=== PATIENT | male | born 1960 | race Caucasian/White ===

== ENCOUNTER 2017-10-24 05:24 | Inpatient (IN) | payer BC, OTHER ==
[2017-10-24] VITALS (20 sets, daily range): BP systolic 128–155; BP diastolic 82–97; PULSE 57–96; TEMP 36.4–36.8; O2SAT 94–97; Ht 175.3 cm; Wt 86.8 kg
[~2017-10-24] VITALS: Ht 175.3 cm; Wt 86.8 kg
[~2017-10-24 05:24] MED LIST: ACET500C35 PO; ASPI81TA28 PO; ATEN50TA8 PO; ATOR-22 PO; ATRO1SOL13 OPL; BRIN3SUS OPL; CIPR-255 PO; CRS/10 PO; GLC/500 PO; PRED1SUS3 OPL; TIMO0.5S2 OPL; [UNRECOGNIZED DRUG - OTHER] OPL
[2017-10-24] MEDS ORDERED: NITROGLYCERIN 0.4 MG SL PER TAB CHARGE ONE (05:38)
[2017-10-24] MEDS ORDERED: ASPIRIN 324 MG CHEW ONE (05:45)
[2017-10-24] MEDS: NITROGLYCERIN 0.4 MG SL PER TAB CHARGE SL PRN ×2 (05:48→05:55)
--- NOTE | 2017-10-24 05:52 | EMERGENCY ROOM VISIT NOTE ---
History Report prepared by Maggie: Brittany Box Under the Supervision of: Dr. Donna Rawls D.O. First contact with patient: 05:30 Chief Complaint: CHEST PAIN Stated Complaint: PAIN IN NECK AND CHEST History of Present Illness The patient is a 57 year old male who presents to the Emergency Room with complaints of an episode of chest pain beginning just prior to arrival. Presently, the patient rates his chest pain as a 6/10. The patient states he woke up this morning with chest pain that radiates to the right side of his neck. He report he had the same pain on Monday, four days ago. When he had the episode of chest pain on Monday, he states he was able to "sleep it off". The patient notes he had a stress test several years ago. The patient has a history of his heart skipping a beat. He notes his father had a bypass in his late 50s. The patient states he had a chest cold for the past ten days. He notes difficulty taking a full breath. The patient does landscaping. The patient takes baby Aspirin once a day in the morning. The patient has a history of high cholesterol and hypertension. Source of History: patient Onset: just prior to arrival Position: chest Symptom Intensity: 6/10 Quality: other (radiates to right side of his neck ) Timing: other (episode) Associated Symptoms: + SOB Review of Systems See HPI for pertinent positives & negatives. A total of 10 systems reviewed and were otherwise negative. Past Medical & Surgical Medical Problems: (1) Food poisoning (2) High cholesterol (3) Hypertension (4) Prediabetes Surgical Problems: (1) Hx of cholecystectomy Family History Cardiac disorder in father Social History Smoking Status: Never Smoker Alcohol Use: none Drug Use: none Marital Status: Occupation Status: employed Current/Historical Medications Scheduled Aspirin (Aspirin 81), 81 MG PO DAILY Atorvastatin (Lipitor), 20 MG PO HS Lisinopril (Prinivil), 10 MG PO DAILY Metformin Hcl (Glucophage), 1,000 MG PO BID Metoprolol Succ (Toprol Xl) (Toprol-Xl), 50 MG PO DAILY Allergies Coded Allergies: No Known Allergies (Verified , 10/24/17) Physical Exam Vital Signs Date Time Temp Pulse Resp B/P (MAP) Pulse Ox O2 Delivery O2 Flow Rate FiO2 10/24/17 06:47 75 19 95 10/24/17 06:45 130/89 10/24/17 06:37 70 18 95 10/24/17 06:30 126/86 10/24/17 06:27 72 16 95 Nasal Cannula 2.0 10/24/17 06:20 Nasal Cannula 2.0 10/24/17 06:17 Nasal Cannula 1.0 10/24/17 06:17 63 20 93 10/24/17 06:15 145/96 10/24/17 06:07 67 26 92 10/24/17 06:00 146/98 10/24/17 06:00 95 10/24/17 05:57 74 15 94 10/24/17 05:54 150/96 10/24/17 05:47 86 17 97 10/24/17 05:42 178/125 96 Room Air 10/24/17 05:39 97 20 10/24/17 05:38 92 10/24/17 05:37 203/129 10/24/17 05:27 36.6 78 18 193/121 100 Room Air Physical Exam HEENT: Head - normocephalic and atraumatic Pupils are equal, round, and reactive to light. Extraocular eye muscles are intact, and sclera are anicteric. Nose - moist nasal mucosa without discharge. Mouth - moist buccal mucosa. Oropharynx is nonerythematous and there is no tonsillar exudate or edema noted. Neck: Supple; no JVD, nuchal rigidity, cervical lymphadenopathy, or auscultated bruits. Heart: Regular rate and rhythm. There is a normal S1 and S2 with no murmurs, clicks, or gallops appreciated. Lungs: Clear to auscultation bilaterally with no wheezes, rales, or rhonchi. Abdomen: Soft, completely nontender, nondistended, with good bowel sounds. There are no palpable pulsatile masses or hepatosplenomegaly. There is no guarding, rigidity, or rebound noted. Extremities: No evidence of cyanosis, clubbing, or edema. There are easily palpable peripheral pulses. Skin: diaphoretic with good turgor and no rashes. Medical Decision & Procedures ER Provider Diagnostic Interpretation: Radiology results as stated below per my review: Portable Chest X-ray: no obvious pulmonary infiltrate, no pneumothorax. Laboratory Results 10/24/17 05:44 Red Blood Count 4.94, Mean Corpuscular Volume 91.7, Mean Corpuscular Hemoglobin 31.4, Mean Corpuscular Hemoglobin Concent 34.2, Mean Platelet Volume 9.5, Neutrophils (%) (Auto) 58.9, Lymphocytes (%) (Auto) 26.8, Monocytes (%) (Auto) 9.1, Eosinophils (%) (Auto) 3.9, Basophils (%) (Auto) 1.0, Neutrophils # (Auto) 6.19, Lymphocytes # (Auto) 2.81, Monocytes # (Auto) 0.96, Eosinophils # (Auto) 0.41, Basophils # (Auto) 0.10 10/24/17 05:44 Test 10/24/17 05:44 White Blood Count 10.50 K/uL (4.8-10.8) Red Blood Count 4.94 M/uL (4.7-6.1) Hemoglobin 15.5 g/dL (14.0-18.0) Hematocrit 45.3 % (42-52) Mean Corpuscular Volume 91.7 fL (80-100) Mean Corpuscular Hemoglobin 31.4 pg (25-34) Mean Corpuscular Hemoglobin Concent 34.2 g/dl (32-36) Platelet Count 347 K/uL (130-400) Mean Platelet Volume 9.5 fL (7.4-10.4) Neutrophils (%) (Auto) 58.9 % Lymphocytes (%) (Auto) 26.8 % Monocytes (%) (Auto) 9.1 % Eosinophils (%) (Auto) 3.9 % Basophils (%) (Auto) 1.0 % Neutrophils # (Auto) 6.19 K/uL (1.4-6.5) Lymphocytes # (Auto) 2.81 K/uL (1.2-3.4) Monocytes # (Auto) 0.96 K/uL (0.11-0.59) Eosinophils # (Auto) 0.41 K/uL (0-0.5) Basophils # (Auto) 0.10 K/uL (0-0.2) RDW Standard Deviation 42.1 fL (36.4-46.3) RDW Coefficient of Variation 12.6 % (11.5-14.5) Immature Granulocyte % (Auto) 0.3 % Immature Granulocyte # (Auto) 0.03 K/uL (0.00-0.02) Prothrombin Time 10.0 SECONDS (9.0-12.0) Prothromb Time International Ratio 1.0 (0.9-1.1) Activated Partial Thromboplast Time 28.2 SECONDS (21.0-31.0) Partial Thromboplastin Ratio 1.1 Anion Gap 10.0 mmol/L (3-11) Est Creatinine Clear Calc Drug Dose 98.0 ml/min Estimated GFR () 108.0 Estimated GFR (Non- 93.2 BUN/Creatinine Ratio 12.2 (10-20) Estimated Average Glucose 128 mg/dl Hemoglobin A1c 6.1 % (4.5-5.6) Calcium Level 9.0 mg/dl (8.5-10.1) Total Bilirubin 0.3 mg/dl (0.2-1) Aspartate Amino Transf (AST/SGOT) 24 U/L (15-37) Alanine Aminotransferase (ALT/SGPT) 34 U/L (12-78) Alkaline Phosphatase 74 U/L (45-117) Total Creatine Kinase 120 U/L (39-308) Creatine Kinase MB 3.2 ng/ml (0.5-3.6) Creatine Kinase MB Ratio 2.7 (0-3.0) Total Protein 7.8 gm/dl (6.4-8.2) Albumin 3.7 gm/dl (3.4-5.0) Globulin 4.1 gm/dl (2.5-4.0) Albumin/Globulin Ratio 0.9 (0.9-2) Triglycerides Level 190 mg/dl (0-150) Cholesterol Level 176 mg/dl (0-200) HDL Cholesterol 52 mg/dl LDL Cholesterol, Calculated 86 mg/dl VLDL Cholesterol, Calculated 38 mg/dl Cholesterol/HDL Ratio 3.4 Medications Administered Medications (Trade) Dose Ordered Sig/Merry Route Start Time Stop Time Status Last Admin Dose Admin Nitroglycerin (Nitrostat Tab) 0.4 mg STK-MED ONCE .ROUTE 10/24/17 05:38 10/24/17 05:39 DC 10/24/17 05:40 0.4 MG Aspirin (Aspirin Chew) 324 mg STK-MED ONCE .ROUTE 10/24/17 05:45 10/24/17 05:46 DC 10/24/17 05:45 324 MG Nitroglycerin (Nitrostat Tab) 0.4 mg Q5M PRN SL 10/24/17 05:50 10/24/17 09:24 DC 10/24/17 05:55 0.4 MG Fentanyl Citrate (Fentanyl Inj) 50 mcg NOW STAT IV 10/24/17 06:07 10/24/17 06:09 DC 10/24/17 06:12 50 MCG Nitroglycerin (Nitroglycerin 2% Oint) 0.5 inch NOW ONCE EXT 10/24/17 06:15 10/24/17 06:16 DC 10/24/17 06:10 0.5 INCH Heparin Sodium (Porcine) (Heparin Iv Bolus) 10,000 unit STK-MED ONCE .ROUTE 10/24/17 06:40 10/24/17 06:41 DC 10/24/17 06:42 5,000 UNIT Heparin Sodium/ Dextrose (Heparin 25,000 Unit/500ml D5W) 25,000 unit STK-MED ONCE .ROUTE 10/24/17 06:40 10/24/17 06:41 DC 10/24/17 06:46 25,000 UNIT Procedure Aspirin PO, Fentanyl IV, Nitroglycerin.ROUTE, Heparin Sodium/Dextrose N/A. ECG Indication: chest pain Rate (beats per minute): 90 Rhythm: normal sinus Findings: T-wave inversion (Lateral), ST elevation (V2 and V3) Comparison ECG Date: 08/09/17 Change: Old EKG was normal, all findings are new. ED Course 0531: Past medical records reviewed. The patient was evaluated in room B2. A complete history and physical exam was performed. A twelve-lead EKG was obtained as described above. An IV lock had been initiated and labs were drawn as above. The patient was observing the proposal writer and pulse oximeter. A portable chest x-ray was obtained. I remained at the patient's bedside. 0538: Ordered Nitroglycerin 0.4 mg SL. 0548: The patient's pain is now a 5/10 after the nitroglycerin. 0545: Ordered Aspirin 324 mg PO 0550:Ordered Nitroglycerin 0.4 mg SL. 0600: I was at the patient's bedside for a Repeat EKG: still having continued T- wave inversion laterally and in lead 1 and aVL. Now he is having multi focal PVCs. 0607: Ordered Fentanyl Inj 50 mcg IV. 0608:1/2 inch nitro paste applied to chest wall 0629: Ordered Heparin bolus and drip. At the patient's bedside to answer questions from the patient's 0630: I updated the patient on his test results and the treatment plan. He is no longer complaining of any chest pain. 0631: Discussed the patient's case with Dr. Johnson. The patient will be evaluated for further management. Medical Decision The patient is a 57 year old male who presents to the ED with chest pain. Differential diagnosis includes STEMI, ACS, NSTEMI, aortic dissection, GERD. Lab results show: white count normal, stable H & H, troponin 1.020, glucose 136 , normal renal function and LFTs, coags are normal. On presentation, the patient is having 6/10 chest discomfort it is significantly hypertensive. There are moderate EKG changes including T wave inversions laterally and in 1 and aVL. Presentation is concerning for an NSTEMI. The patient did have an elevated troponin. He received aspirin, nitroglycerin, and heparin. The patient continued to have discomfort and was given a dose of fentanyl which relieved his pain. I discussed the case with the [facility] Hospitalist and they will evaluate for further care and discussed with cardiology. Medication Reconcilliation Current Medication List: was personally reviewed by me Blood Pressure Screening Patient's blood pressure: Elevated blood pressure Blood pressure disposition: Referred to PCP (evaluated by hopitalist) Consults Time Called: 627 Consulting Physician: Dr. Johnson Returned Call: 06 Discussed the patient's case with Dr. Johnson. The patient will be evaluated for further management. Impression Primary Impression: NSTEMI (non-ST elevated myocardial infarction) Critical Care I have personally spent greater than 60 minutes of critical care time in the direct management of this patient. This includes bedside care, interpretation of diagnostic studies, and testing, discussion with consultants, patient, and family members, and other required patient management activities. This 60 minutes is in excess of all separately billable procedures. Scribe Attestation The scribe's documentation has been prepared under my direction and personally reviewed by me in its entirety. I confirm that the note above accurately reflects all work, treatment, procedures, and medical decision making performed by me. Departure Information Dispostion Being Evaluated By Hospitalist Referrals Mayur Fischer III, M.D. (PCP) Patient Instructions My [facility]
[2017-10-24 05:56] LABS: EOS % 3.9 %; EOS ABS # 0.41 K/uL (0-0.5); HEMATOCRIT 45.3 % (42-52); HEMOGLOBIN 15.5 g/dL (14.0-18.0); IG# 0.03 K/uL (0.00-0.02); LYMPH % 26.8 %; LYMPH ABS # 2.81 K/uL (1.2-3.4); MEAN CELL VOLUME 91.7 fL (80-100); MEAN CORPUSCULAR HEMOGLOBIN 31.4 pg (25-34); MEAN CORPUSCULAR HGB CONC 34.2 g/dl (32-36); MEAN PLATELET VOLUME 9.5 fL (7.4-10.4); MONO % 9.1 %; MONO ABS # 0.96 K/uL (0.11-0.59); NEUT % 58.9 %; NEUT ABS # 6.19 K/uL (1.4-6.5); PLATELET COUNT 347 K/uL (130-400); RED CELL DISTRIBUTION WIDTH CV 12.6 % (11.5-14.5); RED CELL DISTRIBUTION WIDTH SD 42.1 fL (36.4-46.3)
[2017-10-24] MEDS ORDERED: FENTANYL CITRATE INJ 50 MCG/1 ML 2 ML VIAL IV STA (06:07)
[2017-10-24] MEDS ORDERED: FENTANYL CITRATE INJ 50 MCG/1 ML 2 ML VIAL ONE ×2 (06:08→11:06)
[2017-10-24] MEDS ORDERED: NITROGLYCERIN OINT 2% 1GM PACKET ONE (06:09)
[2017-10-24 06:15] LABS: ALBUMIN 3.7 gm/dl (3.4-5.0); CREATININE 0.9 mg/dl (0.60-1.40); POTASSIUM 4.2 mmol/L (3.5-5.1)
[2017-10-24] MEDS ORDERED: NITROGLYCERIN OINT 2% 1GM PACKET EXT ONE (06:15)
[2017-10-24 06:16] LABS: PTT PATIENT 28.2 SECONDS (21.0-31.0)
[2017-10-24] MEDS ORDERED: LISI10TA PO (06:20)
[2017-10-24] MEDS ORDERED: METO50TA7 PO (06:20)
[2017-10-24] MEDS ORDERED: METF-384 PO (06:21)
[2017-10-24] MEDS ORDERED: ASPI-435 PO (06:21)
[2017-10-24 06:28] LABS: CKMB 3.2 ng/ml (0.5-3.6); TOTAL PROTEIN 7.8 gm/dl (6.4-8.2)
[2017-10-24] MEDS ORDERED: HEPARIN 25000 UNIT/500 ML D5W ONE (06:40)
[2017-10-24] MEDS ORDERED: HEPARIN SOD (PORCINE) 1000 UNIT/ML 10 ML VIAL ONE ×2 (06:40→11:06)
[2017-10-24] MEDS ORDERED: DEXTROSE 50% 50 ML SYR IV PRN (07:00)
[2017-10-24] MEDS ORDERED: GLUCAGON FOR INJ 1 MG VIAL SQ PRN (07:00)
[2017-10-24] MEDS ORDERED: GLUCOSE 40% GEL 15 GM TUBE PO PRN (07:00)
[2017-10-24] MEDS ORDERED: GLUCOSE 10 TABS/TUBE PO PRN (07:00)
--- NOTE | 2017-10-24 07:00 | History and Physical ---
History & Physical Date & Time of Service: Oct 24, 2017 at 06:55 Chief Complaint: Pain In Neck And Chest Primary Care Physician: Mayur Fischer III, M.D. History of Present Illness Source: patient This is a 57 year old M who had recent symptoms of chest cold for which he attributed the chest pain discomfort to on Monday08/20/17 which lasted 3 hours after he was drinking alcohol, patient subsequently has another chest pain episode that woke him up from sleep at 3 AM on 10/24/16 which lasted until 5:30 AM when arrived in the ED and given Fentanyl pain medications. Also given Nitro patch. Both reported chest pains episode occurred at rest. He reports that the second chest pain episode was associated with pain radiating to right neck and jaw. In the ED patient was given aspirin 324 mg. Found to have elevated troponin of 1. EKG appears to have T wave inversions in lateral leads. ED physician ordered heparin drip to be started for NSTEMI Past Medical/Surgical History Medical Problems: (1) Food poisoning Status: Resolved (2) High cholesterol Status: Chronic (3) Hypertension Status: Chronic (4) Prediabetes Status: Chronic Surgical Problems: (1) Hx of cholecystectomy Status: Resolved Family History Cardiac disorder in father Social History Smoking Status: Never Smoker Marital Status: Multi-Drug Resistant Organisms History of MDRO: No Allergies Coded Allergies: No Known Allergies (Verified , 10/24/17) Home Medications Scheduled Aspirin (Aspirin 81), 81 MG PO DAILY Atorvastatin (Lipitor), 20 MG PO HS Lisinopril (Prinivil), 10 MG PO DAILY Metformin Hcl (Glucophage), 1,000 MG PO BID Metoprolol Succ (Toprol Xl) (Toprol-Xl), 50 MG PO DAILY Review of Systems Constitutional: No fever Eyes: No worsening of vision ENT: + nasal symptoms (reports "chest cold"), + problem reported (reported chest pain radiating to right neck and right jaw), No hearing loss, No sore throat Respiratory: No cough, No wheezing, No shortness of breath Cardiovascular: + chest pain, No edema, No palpitations Abdomen: No pain, No nausea, No vomiting Genitourinary - Male: No hematuria Neurologic: No paralysis, No numbness/tingling Psychiatric: No substance abuse Endocrine: No fatigue Hematologic / Lymphatic: No abnormal bleeding/bruising Integumentary: No rash, No itch Physical Exam Vital Signs Date Time Temp Pulse Resp B/P (MAP) Pulse Ox O2 Delivery O2 Flow Rate FiO2 10/24/17 06:20 Nasal Cannula 2.0 10/24/17 06:17 Nasal Cannula 1.0 10/24/17 06:00 95 10/24/17 05:42 178/125 96 Room Air 10/24/17 05:39 97 20 10/24/17 05:38 92 10/24/17 05:37 203/129 10/24/17 05:27 36.6 78 18 193/121 100 Room Air General Appearance: no apparent distress Head: normocephalic, atraumatic Eyes: normal inspection, EOMI, sclerae normal ENT: normal ENT inspection, hearing grossly normal, pharynx normal Neck: supple, no JVD, trachea midline Respiratory/Chest: chest non-tender, lungs clear, normal breath sounds, no respiratory distress, no accessory muscle use Cardiovascular: regular rate, rhythm, no edema, no JVD, no murmur, normal peripheral pulses Abdomen/GI: normal bowel sounds, non tender, soft, no organomegaly, no pulsatile mass Back: normal inspection, no muscle spasm, normal range of motion Extremities/Musculoskelatal: normal inspection, no calf tenderness, no pedal edema, normal range of motion, non-tender Neurologic/Psych: chemical laboratory assistant II-XII nml as tested, no motor/sensory deficits, alert, normal mood/affect, oriented x 3 Skin: normal color, warm/dry, no rash Diagnostics Laboratory Results Results Past 24 Hours Test 10/24/17 05:44 10/24/17 06:51 Range/Units White Blood Count 10.50 4.8-10.8 K/uL Red Blood Count 4.94 4.7-6.1 M/uL Hemoglobin 15.5 14.0-18.0 g/dL Hematocrit 45.3 42-52 % Mean Corpuscular Volume 91.7 80-100 fL Mean Corpuscular Hemoglobin 31.4 25-34 pg Mean Corpuscular Hemoglobin Concent 34.2 32-36 g/dl Platelet Count 347 130-400 K/uL Mean Platelet Volume 9.5 7.4-10.4 fL Neutrophils (%) (Auto) 58.9 % Lymphocytes (%) (Auto) 26.8 % Monocytes (%) (Auto) 9.1 % Eosinophils (%) (Auto) 3.9 % Basophils (%) (Auto) 1.0 % Neutrophils # (Auto) 6.19 1.4-6.5 K/uL Lymphocytes # (Auto) 2.81 1.2-3.4 K/uL Monocytes # (Auto) 0.96 0.11-0.59 K/uL Eosinophils # (Auto) 0.41 0-0.5 K/uL Basophils # (Auto) 0.10 0-0.2 K/uL RDW Standard Deviation 42.1 36.4-46.3 fL RDW Coefficient of Variation 12.6 11.5-14.5 % Immature Granulocyte % (Auto) 0.3 % Immature Granulocyte # (Auto) 0.03 0.00-0.02 K/uL Prothrombin Time 10.0 9.0-12.0 SECONDS Prothromb Time International Ratio 1.0 0.9-1.1 Activated Partial Thromboplast Time 28.2 21.0-31.0 SECONDS Partial Thromboplastin Ratio 1.1 Sodium Level 138 136-145 mmol/L Potassium Level 4.2 3.5-5.1 mmol/L Chloride Level 103 98-107 mmol/L Carbon Dioxide Level 25 21-32 mmol/L Anion Gap 10.0 3-11 mmol/L Blood Urea Nitrogen 11 7-18 mg/dl Creatinine 0.90 0.60-1.40 mg/dl Est Creatinine Clear Calc Drug Dose 98.0 ml/min Estimated GFR () 108.0 Estimated GFR (Non- 93.2 BUN/Creatinine Ratio 12.2 10-20 Random Glucose 136 70-99 mg/dl Calcium Level 9.0 8.5-10.1 mg/dl Total Bilirubin 0.3 0.2-1 mg/dl Aspartate Amino Transf (AST/SGOT) 24 15-37 U/L Alanine Aminotransferase (ALT/SGPT) 34 12-78 U/L Alkaline Phosphatase 74 45-117 U/L Total Creatine Kinase 120 39-308 U/L Creatine Kinase MB 3.2 0.5-3.6 ng/ml Creatine Kinase MB Ratio 2.7 0-3.0 Troponin I 1.020 0-0.045 ng/ml Total Protein 7.8 6.4-8.2 gm/dl Albumin 3.7 3.4-5.0 gm/dl Globulin 4.1 2.5-4.0 gm/dl Albumin/Globulin Ratio 0.9 0.9-2 CXR normal EKG EKG with NSR with lateral lead T wave inversions Impression Assessment and Plan Chest pain, NSTEMI -troponin of 1 with T wave inversions in lateral leads, serial troponins and EKGs -received aspirin 324 mg in the ED, heparin drip to start in the ED -cardiology consultation requested for evaluation -NPO except medications -echocardiogram ordered -was given Fentanyl and Nitro patch in the ED, continue pain medication as morphine 4 mg IV q6hour for pain, and nitro sublingual prn for chest pain -check lipid profile -continue statin at home vs increased statin doses -continue aspirin daily History of HTN -continue home dose lisinopril -titrate blood pressure medications as needed History or Prediabetes vs Diabetes on metformin at home -check hbA1c -hold metformin -start sliding scale insulin based on fingerstick glucose DVT ppx: heparin drip PCP is Dr. Vaughn Level of Care Telemetry Resuscitation Status FULL RESUSCITATION VTE Prophylaxis VTE Risk Assessment Done? Y/N: Yes Risk Level: High
--- NOTE | 2017-10-24 07:03 | DIAGNOSTIC IMAGING REPORT ---
CHEST ONE VIEW PORTABLE CLINICAL HISTORY: Chest pain. Neck pain. COMPARISON STUDY: No previous studies for comparison. FINDINGS: Lung volumes are normal. No pneumothorax or pleural effusion is noted. Pulmonary vascularity is normal. No consolidation is identified. Cardiomediastinal silhouette is unremarkable. There are suspected cholecystectomy clips. IMPRESSION: No acute cardiopulmonary findings. Electronically signed by: Rajesh Deluna M.D. 10/24/2017 7:02 AM Dictated Date/Time: 10/24/2017 7:01 AM
[2017-10-24] MEDS ORDERED: MoRPHine SULFATE 4 MG/ML 1 ML CARP\\VIAL IV PRN (07:15)
[2017-10-24 09:20] LABS: HEMOGLOBIN A1C 6.1 % (4.5-5.6)
[2017-10-24] MEDS: INSULIN ASPART 100 UNITS/ML 3 ML PEN SC SCH ×4 (09:41→20:43)
[2017-10-24] MEDS: METOPROLOL SUCC 50MG EXT REL TAB PO SCH (10:17)
[2017-10-24] MEDS: LISINOPRIL 10 MG TAB PO SCH (10:17)
--- NOTE | 2017-10-24 11:04 | CARDIOLOGY CONSULTATION ---
DATE OF CONSULTATION: 10/24/2017 DATE OF CONSULTATION: 10/24/2017 REFERRING: Dr. Yang, Dr. Hayes. PRIMARY CARE PHYSICIAN: Dr. Fischer. INDICATIONS: Chest pain, myocardial ischemia. HISTORY OF PRESENT ILLNESS: The patient is a 57-year-old male with past history notable for multiple cardiac risk factors including hypertension, hyperlipidemia, familial history of cardiac disease and prediabetes who notes symptoms of chest pressure, pain with an episode of 3 hours of chest discomfort on Monday evening on 08/20/2017 while watching wrestling. He was once again this morning awakened from sleep at approximately 3 a.m. with chest pressure, pain radiating to the jaw and right-sided neck. He presented to the Emergency Room promptly where he was given aspirin, IV heparin and troponins are elevated. EKGs demonstrate an anterolateral ischemia. He is referred for hospitalization. The patient continues to have a very low grade chest pressure pain. Notes no fevers, chills, sweats, cough, hoarseness, wheeze or hemoptysis. Notes no melena or hematochezia, dysuria or hematuria. Notes no bleeding difficulties. Notes no recent fevers or infections. Notes no prior history of cardiac disease or myocardial infarction. Appetite and weight have generally been stable. He is a nonsmoker. ALLERGIES: None. MEDICATIONS: Prior to hospital were aspirin 81 mg per day, atorvastatin 20 mg at bedtime, lisinopril 10 mg p.o. daily, metformin 1000 mg b.i.d., metoprolol succinate 50 mg p.o. daily. PAST SURGICAL HISTORY: Notable for cholecystectomy. FAMILY HISTORY: Notable for father has undergone prior coronary bypass grafting, iliofemoral bypass and carotid surgeries. Mother has a history of atrial fibrillation. SOCIAL HISTORY: The patient works as a snow blower, he is a nonsmoker. Drinks occasional alcoholic beverages, none to excess. He is moderately active. PHYSICAL EXAMINATION: VITAL SIGNS: Heart rate 73, blood pressure is 130/83. HEAD, EYES, EARS, NOSE, AND THROAT: Normocephalic, atraumatic. Nares without discharge. Throat was clear. NECK: Supple without thyromegaly or lymphadenopathy. There are no carotid bruits. LUNGS: Clear to auscultation. CARDIOVASCULAR: Regular, normal S1, S2. There is no audible murmur, gallop or rub. PMI is nondisplaced. ABDOMEN: Soft, nontender. There is no palpable hepatosplenomegaly. There is no hepatojugular reflux. EXTREMITIES: Without cyanosis or clubbing. There is no peripheral edema. There are intact distal pulses. There are no audible abdominal or femoral bruits. NEUROLOGIC: The patient is alert and oriented, answering questions appropriately. LABORATORY DATA: White cell count 10.5, hemoglobin is 15.5, platelet count is 347. Sodium is 138, potassium is 4.2, chloride is 103, bicarbonate 25, BUN is 11, creatinine 0.9. Hemoglobin A1c is 6.1. Cholesterol is 176, LDL 86, HDL 52. Troponin on presentation was 1.02. Expect next troponin to be elevated. EKG reveals anterolateral ischemia with biphasic and inverted T-waves in V2-V6 on serial EKGs. No acute ST elevation. Echocardiogram demonstrates hypokinesis in the LAD distribution. IMPRESSION: A 57-year-old male presents with acute coronary syndrome, unstable angina, non-ST segment elevation myocardial infarction with initial event beginning on Monday10/19/2016 with recurrent episode of chest pain, awaking from sleep at 3:00 a.m. this morning. Enzymes are elevated. EKG demonstrates LAD distribution ischemia. Echocardiogram reflects findings consistent with such. The patient is appropriately anticoagulated with heparin. He is on beta diana at baseline. Topical nitrates have been administered. Continues to have low grade chest discomfort. RECOMMENDATIONS: The patient will be taken to the cardiac catheterization lab to define coronary anatomy. Procedure and risks explained in detail to the patient, informed consent will be obtained. Further recommendations pending cardiac catheterization performed shortly.
[2017-10-24] MEDS ORDERED: NiCARDipine HCL INJ 2.5 MG/ML 10 ML AMP ONE (11:06)
[2017-10-24] MEDS ORDERED: MIDAZOLAM HCL 1 MG/ML 2ML VIAL ONE (11:06)
[2017-10-24] MEDS ORDERED: NITROGLYCERIN/D5W 100MCG/ML 20ML SYR ONE (11:07)
[2017-10-24] MEDS ORDERED: HEPARIN 25,000 UNIT/500ML D5W 500 ML IV PRN (12:00)
[2017-10-24] MEDS ORDERED: TICAGRELOR 90 MG TAB PO ONE ×2 (13:05)
--- NOTE | 2017-10-24 13:16 | [facility] Post Operative Brief Note ---
Preliminary Procedure Note Procedure Date Oct 24, 2017. Pre-Procedure Diagnosis Non STEMI AUC Score 9 Post-Procedure Diagnosis Severe CAD (, single vessel) Procedure(s) Performed Coronary Angiography, Left Heart Cath [facility] Lead Psychologist Dr. Damien Reynolds Car Usher(s) [facility] Estimated Blood Loss <15 cc Medication(s) Fentanyl (12.5 mcg IV), Heparin (2000u IV), Nicardipine (250 mcg intraarterial after sheath insertion), Versed (1mg IV), Lidocaine 1% (local infiltration) Preliminary Findings Right dominant coronary anatomy Culprit vessel occlusive disease with 90% mid LAD stenosis LM calcified with 10- 20% distal taper LAD Type 3 with moderate calcification prox 1/3, mild irregularities distally. Small D1, large D2, large septal all in proximal vessel LCX large but non dominant with 30% prior to large OM, 50% in AV groove at origin of PL1 narrowing origin of moderate sized vessel by 80% PL2 RCA 30% proximal and mid vessel, tortuous PDA and AV groove portion, single PV without obstruction LV gram not performed LVEDP 12 Recommendations PCI without planned CABG Specimens None Fluids (cc crystalloids) 90 Anesthesia Start 1209 Stop initial proceduer 1238 M Bernardo Procedural Complication(s) None Disposition Coronary intervention same setttay
--- NOTE | 2017-10-24 13:25 | Cardiac Catheterization ---
Procedure Note Procedure Date Oct 24, 2017. Pre-Procedure Diagnosis Non STEMI AUC Score 9 Post-Procedure Diagnosis Severe CAD (single vessel occlusive) Procedure(s) Performed Coronary Angiography, Left Heart Cath Aircraft Skin Burnisher Dr. Damien Reynolds Motor And Generator Brush Cutter(s) [facility] Palacio Estimated Blood Loss <15cc Medication(s) Fentanyl (12.5mcg IV), Heparin (2000u IV), Nicardipine (250mcgintraarterial after sheath insertion), Versed (1mg IV), Lidocaine 1% (local infiltration) Summary of Findings Right dominant coronary anatomy Culprit vessel occlusive disease with 90% mid LAD stenosis LM calcified with 10- 20% distal taper LAD Type 3 with moderate calcification prox 1/3, mild irregularities distally. Small D1, large D2, large septal all in proximal vessel LCX large but non dominant with 30% prior to large OM, 50% in AV groove at origin of PL1 narrowing origin of moderate sized vessel by 80% PL2 RCA 30% proximal and mid vessel, tortuous PDA and AV groove portion, single PV without obstruction LV gram not performed LVEDP 12 Hemodynamics Rest Ao: 125/76/97 Final Ao: 128/78/100 LV: 122/21/12 Recommendations PCI without planned CABG Specimens None Radiation Exposure (mGy) 1421 Contrast (mls) 78 Fluids (cc crystalloids) 93 Procedural Complication(s) None Disposition Intervention ACC Data Cardiac Status Clinical evaluation leading to the procedure CAD Presntation: Non STEMI Anginal Classification: CCS IV Heart Failure: No Cardiogenic Shock w/in 24Hrs: No Cardiac Arrest w/in 24Hrs: No Imaging studies past 6 months: No Stress studies past 6 months: No Standard Exercise Stress Test: No Stress Echocardiogram: No Stress Testing w/SPECT MPI: No Cardiac CTA: No Coronary Anatomy Dominant: Right Left Main (% Stenosis): Distal (10-20) LAD (% Stenosis): Mid (90) D1 (% Stenosis): Normal D2 (% Stenosis): Normal Circumflex (% Stenosis): Proximal (30), Distal (50) OM1 (% Stenosis): Normal L PL1 (% Stenosis): Ostial (80) L PL2 (% Stenosis): Normal RCA (% Stenosis): Proximal (30), Mid (30) R PDA (% Stenosis): Normal R PL1 (% Stenosis): Normal Diagnostic Physician's Name: Damien Reynolds M.D. Status: Urgent Closure Device Percutaneous Entry Location: Radial Recommendations: PCI without planned CABG PCI Indication: PCI for high risk Non-STEMI
[2017-10-24] MEDS ORDERED: ACETAMINOPHEN 325 MG TAB PO PRN (13:45)
--- NOTE | 2017-10-24 13:46 | Post Sedation Assessment ---
Post Sedation Assessment General Date of Sedation Oct 24, 2017. Vital Signs: Vital Signs Past 12 Hours Date Time Temp Pulse Resp B/P (MAP) Pulse Ox O2 Delivery O2 Flow Rate FiO2 10/24/17 13:27 70 18 149/100 (116) 98 Room Air 10/24/17 13:20 70 18 151/100 (117) 98 Room Air 10/24/17 11:30 36.4 78 18 128/82 (97) 94 Room Air 10/24/17 11:30 94 Room Air 10/24/17 08:30 36.8 73 18 152/93 97 Nasal Cannula 2.0 10/24/17 08:00 68 18 130/83 97 10/24/17 07:45 70 112/79 97 10/24/17 06:47 75 19 95 10/24/17 06:45 130/89 10/24/17 06:37 70 18 95 10/24/17 06:30 126/86 10/24/17 06:27 72 16 95 Nasal Cannula 2.0 10/24/17 06:20 Nasal Cannula 2.0 10/24/17 06:17 Nasal Cannula 1.0 10/24/17 06:17 63 20 93 10/24/17 06:15 145/96 10/24/17 06:07 67 26 92 10/24/17 06:00 146/98 10/24/17 06:00 95 10/24/17 05:57 74 15 94 10/24/17 05:54 150/96 10/24/17 05:47 86 17 97 10/24/17 05:42 178/125 96 Room Air 10/24/17 05:39 97 20 10/24/17 05:38 92 10/24/17 05:37 203/129 10/24/17 05:27 36.6 78 18 193/121 100 Room Air Post Procedure Recovery Score Activity: (2) Moves 4 extremities * Respiration: (2) Deep breath/cough Circulation: (2) +/-20% PreAnes Value Consciousness: (2) Fully Awake Oxygen Saturation: (2) > 92% On Room Air Post Anesthesia Score: 10 Discharge Sedation Level of Care: Fast Track Phase II Post Sedation Plan On clinical assessment, the patient appears to have tolerated the sedation without complications. Patient is recovering as anticipated. Patient will continue to be monitored by nursing and may be discharged when sedation discharge criteria are met per below protocol. Upon Completions of procedure and additional 15 minutes continue every 5 minute vital signs and the P.A.R. score; then discharge to a Phase I or Fast Track to Phase II per the following guidelines: * Discharge Patient to appropriate Phase II area if PAR is 8 or greater or return to pre- procedure baseline. The post - procedure orders will be as directed. * If PAR score is less than 8 or not return to pre-procedure baseline then patient will follow Phase I monitoring till PAR is reached for Phase II. The Phase I may be done in procedure room or may call to secure a Phase I area. * If naloxone or flumazenil are used for reversal, hold in Phase I for an additional 60 -120 minutes before discharge to Phase II. Please call the Sedation Physician to re-evaluate and complete post-note for discharge to Phase II area. Do NOT discharge from procedure sedation or Phase 1 until post- sedation evaluation note is complete by procedure /sedation MD Sedation Discharge Instructions to be given to the patient at discharge to home.
--- NOTE | 2017-10-24 13:46 | Cardiac Catheterization ---
Procedure Note Procedure Date Oct 24, 2017. Pre-Procedure Diagnosis Non STEMI AUC Score 8 Post-Procedure Diagnosis Severe CAD, Successful PCI Procedure(s) Performed Drug Eluting Stent Compliance Reviewer Chase Quarrying Specialist(s) Soniat Estimated Blood Loss 15 Medication(s) Heparin, Nicardipine, Nitroglycerin Ticagrelor Summary of Findings Indication: High-risk NSTEMI Access: 6Fr right radial artery Catheters: EBU 3.5 guide Findings: For full details of patient's coronary angiography please see cath report dictated by Dr. Reynolds. Briefly, patient found to have 90+% mid LAD stenosis and decision made to proceed with PCI. -- PCI -- Antithrombotic therapy: Heparin, Ticagrelor Procedure: LM cannulated with EBU 3.5 guide BMW wire passed across lesion into distal vessel Mid LAD lesion predilated with 2.5 compliant balloon Dilated lesion stented with 3.0 x 33 Xience CLARISSA Whisper wire placed into 2nd diagonal Stent post-dilated with 3.5 noncompliant balloon IC vasodilators administered for spasm Post procedure AVERY 3 flow, stent well expanded with minimal residual stenosis and no apparent cardiac complications. Arterial Closure: TR Band Summary: 1. Successful PCI of mid LAD with one drug-eluting stent (3.0 x 33 Xience, post- dilated with 3.5 NC balloon). Recommendations: To PCU for continued monitoring Loaded with Ticagrelor 180mg in microbiology laboratory manager Continue dual-antiplatelet therapy for 1 year Continue statin, and ASCVD risk factor modification per Dr. Reynolds Consult cardiac Rehab Hemodynamics Rest Ao: 125/76/97 Final Ao: 134/74/101 LV: 122/12 Recommendations PCI without planned CABG Specimens None Radiation Exposure (mGy) 3136 Contrast (mls) 178 Fluids (cc crystalloids) 60 Drains None Anesthesia Moderate Procedural Complication(s) None Disposition PCU ACC Data Cardiac Status Clinical evaluation leading to the procedure CAD Presntation: Non STEMI Anginal Classification: CCS IV Heart Failure: No, NYHA Class: CCS I Cardiogenic Shock w/in 24Hrs: No Cardiac Arrest w/in 24Hrs: No Imaging studies past 6 months: Yes Stress studies past 6 months: No Closure Device Percutaneous Entry Location: Radial Closure Device: Radial Band Recommendations: PCI without planned CABG PCI Indication: PCI for high risk Non-STEMI Lesion Segment Name: Mid LAD Culprit Artery: Yes Stenosis Prior to Rx (%): 90 Chronic Total Occlusion: No IVUS: No FFR: No Pre-Procedure AVERY Flow: 3 Previously Treated Lesion: No Lesion Complexity: Non-High/Non-C Lesion Length (mm): 25 Thrombus Present: Yes Bifurcation Lesion: No Guidewire Across Lesion: Yes Guidewire: Stenosis Post-Procedure (%): 0 Post-Procedure AVERY Flow: 3 Device(s) Deployed: Yes Intraprocedure Events Significant Dissection: No Perforation: No
--- NOTE | 2017-10-24 15:00 | ECHOCARDIOGRAM REPORT ---
*NOTICE TO RECEIVING CONSTITUTION PARTY AGENCY This information is strictly Confidential and protected under [place] law. [place] law prohibits you from making any further disclosure of this information unless further disclosure is expressly permitted by the written consent of the person to whom it pertains or is authorized by law. A general authorization for the release of medical or other information is not sufficient for this purpose. Hospital accepts no responsibility if the information is made available to any other person, INCLUDING THE PATIENT. Interpretation Summary * Name: THONG DOTY Study Date: 10/24/2017 09:34 AM BP: 130/83 mmHg * Patient Location: E102 HR: 73 * : 1960 (M/d/yyyy) Gender: Male Height: 69 in * Age: 57 yrs Ethnicity: [place] Weight: 198 lb * Ordering Physician: Haroldo Yang * Referring Physician: Self, Referred * Performed By: Maria C Palacio RCS * * Reason For Study: NSTEMI * BSA: 2.1 m2 * -- Conclusions -- * The left ventricle is normal in size. * There is moderate concentric left ventricular hypertrophy. * There is severe hypokinesis of the mid and distal LAD distribution territory including mid and apical septum, apicl inferior and lateral norris * Ejection Fraction = 35-40%. * Grade I diastolic dysfunction, (abnormal relaxation pattern). * There is no significant valvular disease Procedure Details * A complete two-dimensional transthoracic echocardiogram was performed (2D, M-mode, Doppler and color flow Doppler). Left Ventricle * The left ventricle is normal in size. * There is moderate concentric left ventricular hypertrophy. * Ejection Fraction = 35-40%. * There is severe hypokinesis of the mid and distal LAD distribution territory including mid and apical septum, apicl inferior and lateral norris Right Ventricle * The right ventricle is normal in size and function. Atria * The left atrial size is normal. * Right atrial size is normal. * No ASD detected; PFO is not assessed. Mitral Valve * The mitral valve anatomy is normal. * There is no mitral valve stenosis. * There is trace mitral regurgitation. Tricuspid Valve * The tricuspid valve anatomy is normal. * There is no tricuspid stenosis. * There is trace tricuspid regurgitation. Aortic Valve * The aortic valve is trileaflet. * No hemodynamically significant valvular aortic stenosis. * No aortic regurgitation is present. Pulmonic Valve * The pulmonic valve is not well visualized. Great Vessels * The aortic root is normal size. Pericardium/Pleural * There is no pericardial effusion. Left Ventricular Diastolic Function * Grade I diastolic dysfunction, (abnormal relaxation pattern). MMode 2D Measurements and Calculations IVSd 1.4 cm IVSs 1.7 cm LVIDd 4.9 cm LVIDs 3.1 cm LVPWd 1.4 cm LVPWs 1.6 cm IVS/LVPW 1.0 FS 37.1 % EDV(Teich) 114.7 ml ESV(Teich) 38.1 ml EF(Teich) 66.8 % EDV(cubed) 120.3 ml ESV(cubed) 30.0 ml EF(cubed) 75.1 % % IVS thick 19.8 % % LVPW thick 12.2 % LV mass(C)d 283.3 grams LV mass(C)dI 137.7 grams/m\S\2 LV mass(C)s 187.3 grams LV mass(C)sI 91.1 grams/m\S\2 SV(Teich) 76.7 ml SI(Teich) 37.3 ml/m\S\2 SV(cubed) 90.3 ml SI(cubed) 43.9 ml/m\S\2 Ao root diam 3.2 cm Ao root area 8.0 cm\S\2 ACS 2.2 cm LA dimension 4.2 cm LA/Ao 1.3 LVOT diam 2.0 cm LVOT area 3.1 cm\S\2 LVAd ap4 43.8 cm\S\2 LVLd ap4 9.2 cm EDV(MOD-sp4) 167.2 ml EDV(sp4-el) 176.6 ml LVAs ap4 30.4 cm\S\2 LVLs ap4 8.2 cm ESV(MOD-sp4) 90.1 ml ESV(sp4-el) 95.8 ml EF(MOD-sp4) 46.1 % EF(sp4-el) 45.8 % LVAd ap2 41.0 cm\S\2 LVLd ap2 8.8 cm EDV(MOD-sp2) 157.0 ml EDV(sp2-el) 161.2 ml LVAs ap2 29.6 cm\S\2 LVLs ap2 8.1 cm ESV(MOD-sp2) 87.6 ml ESV(sp2-el) 91.3 ml EF(MOD-sp2) 44.2 % EF(sp2-el) 43.4 % LVLd %diff -4.49 % EDV(MOD-bp) 164.2 ml LVLs %diff -0.30 % ESV(MOD-bp) 88.2 ml EF(MOD-bp) 46.3 % SV(MOD-sp4) 77.1 ml SI(MOD-sp4) 37.5 ml/m\S\2 SV(MOD-sp2) 69.3 ml SI(MOD-sp2) 33.7 ml/m\S\2 SV(MOD-bp) 75.9 ml SI(MOD-bp) 36.9 ml/m\S\2 SV(sp4-el) 80.8 ml SI(sp4-el) 39.3 ml/m\S\2 SV(sp2-el) 69.9 ml SI(sp2-el) 34.0 ml/m\S\2 Doppler Measurements and Calculations MV E max jason 57.2 cm/sec MV A max jason 58.8 cm/sec MV E/A 0.97 MV P1/2t max jason 70.7 cm/sec MV P1/2t 64.5 msec MVA(P1/2t) 3.4 cm\S\2 MV dec slope 321.2 cm/sec\S\2 MV dec time 0.24 sec Ao V2 max 114.3 cm/sec Ao max PG 5.2 mmHg Ao max PG (full) 2.5 mmHg DAMIEN(V,A) 2.3 cm\S\2 DAMIEN(V,D) 2.3 cm\S\2 LV V1 max PG 2.8 mmHg LV V1 max 83.1 cm/sec MR max jason 404.5 cm/sec MR max PG 65.4 mmHg PA V2 max 91.5 cm/sec PA max PG 3.3 mmHg TR max jason 323.9 cm/sec
[2017-10-24] MEDS: SODIUM CHLORIDE 0.9% 1000ML 1,000 ML IV SCH ×2 (15:10→20:48)
[2017-10-24] MEDS: TICAGRELOR 90 MG TAB PO SCH (20:47)
[2017-10-24] MEDS ORDERED: ATORVASTATIN 20 MG TAB PO SCH (21:00)
[2017-10-25] VITALS: BP 141/82; PULSE 74; TEMP 37; O2SAT 97
[2017-10-25] MEDS ORDERED: SODIUM CHLORIDE 0.9% 1000ML 1,000 ML IV SCH
[2017-10-25 04:00] VITALS: BP 131/75; PULSE 79; TEMP 36.5; O2SAT 98
[2017-10-25] MEDS: INSULIN ASPART 100 UNITS/ML 3 ML PEN SC SCH ×2 (07:32→11:00)
[2017-10-25] MEDS: METOPROLOL SUCC 50MG EXT REL TAB PO SCH (07:39)
[2017-10-25] MEDS: LISINOPRIL 10 MG TAB PO SCH (07:40)
[2017-10-25] MEDS: TICAGRELOR 90 MG TAB PO SCH (07:41)
[2017-10-25 08:00] VITALS: BP 131/73; PULSE 80; TEMP 36.7; O2SAT 94
[2017-10-25] MEDS ORDERED: ASPIRIN 81 MG ECTAB PO SCH (09:00)
[2017-10-25] MEDS ORDERED: NITROGLYCERIN 0.4 MG SL PER TAB CHARGE SL PRN (10:30)
--- NOTE | 2017-10-25 10:34 | PROGRESS NOTE ---
DATE: 10/25/2017 The patient seen and examined. Chart, medications, telemetry reviewed. SUBJECTIVE: The patient feels well this morning. Notes heaviness last evening with no persistent pain this morning. Notes no chest pains. Notes not tachypalpitations. Notes no dizziness. Has been up in room, though not ambulatory in the hallway. Right radial site is healing. OBJECTIVE: VITAL SIGNS: Heart rate is 80, blood pressure is 131/73. HEENT: Normocephalic and atraumatic. NECK: Thin. There is no jugular venous distention. LUNGS: Clear. CARDIOVASCULAR: Regular. There is no S3 gallop. ABDOMEN: Soft, nontender. EXTREMITIES: Without cyanosis or clubbing. There is no peripheral edema. Right radial puncture site is healing. LABORATORY DATA: Laboratory studies; troponin last evening was 5.0. Lipids yesterday were cholesterol of 175, LDL of 86, HDL of 52. IMPRESSION: A 57-year-old male presented with chest pain, non-ST segment elevation myocardial infarction in a stuttering pattern. Initial echocardiogram demonstrated [id number] left ventricular dysfunction with hypokinesis and an area of LAD distribution confirmed by diagnostic cardiac catheterization and ejection fraction initially 35-40%. A repeat echocardiogram today demonstrates improved ejection fraction of 42% and better contractility of the apical segments. RECOMMENDATIONS: We will continue current medical regimen including dual antiplatelet therapy with ticagrelor and aspirin. Continue lisinopril at 10 mg per day. Continue metoprolol succinate with increased dosing to 75 mg per day. Sublingual nitroglycerin to be added to medical regimen. The patient is ambulatory in the hallway without complaints. May be discharged later today. Cardiac rehab consultation will be placed with planned follow up in cardiology clinic in the next 1-2 week's time.
[2017-10-25] MEDS: SODIUM CHLORIDE 0.9% 1000ML 1,000 ML IV SCH (11:27)
[2017-10-25 12:00] VITALS: PULSE 75; TEMP 36.5; O2SAT 97
--- NOTE | 2017-10-25 13:20 | ECHOCARDIOGRAM REPORT ---
*NOTICE TO RECEIVING DEMOCRAT AGENCY This information is strictly Confidential and protected under [place] law. [place] law prohibits you from making any further disclosure of this information unless further disclosure is expressly permitted by the written consent of the person to whom it pertains or is authorized by law. A general authorization for the release of medical or other information is not sufficient for this purpose. Hospital accepts no responsibility if the information is made available to any other person, INCLUDING THE PATIENT. Interpretation Summary * Name: THONG DOTY Study Date: 10/25/2017 06:41 AM BP: 131/73 mmHg * Patient Location: E102 HR: 80 * : 1960 (M/d/yyyy) Gender: Male Height: 69 in * Age: 57 yrs Ethnicity: [place] Weight: 198 lb * Ordering Physician: Damien Reynolds MD, [facility] * Performed By: Alberto Miller [facility] * * Reason For Study: F/U LV Function * BSA: 2.1 m2 * Compared to prior study, changes are noted. * -- Conclusions -- * There is moderate hypokinesis of the mid and distal LAD distribution territory including mid and apical septum, apicl inferior wall. * In comparison to prior day , area of hyokinesis has improved as has the ejection fracion. Procedure Details * A two-dimensional transthoracic echocardiogram was performed. Left Ventricle * Ejection Fraction = 40-45%. * There is moderate hypokinesis of the mid and distal LAD distribution territory including mid and apical septum, apicl inferior wall. In comparison to prior day , area of hyokinesis has improved as has the ejection fracion. MMode 2D Measurements and Calculations IVSd 1.0 cm IVSs 1.1 cm LVIDd 4.3 cm LVIDs 3.4 cm LVPWd 1.0 cm LVPWs 1.1 cm IVS/LVPW 10 FS 20.9 % EDV(Teich) 84.4 ml ESV(Teich) 48.3 ml EF(Teich) 42.8 % EDV(cubed) 81.1 ml ESV(cubed) 40.2 ml EF(cubed) 50.5 % % IVS thick 11.8 % % LVPW thick 5.1 % LV mass(C)d 146.7 grams LV mass(C)dI 71.3 grams/m\S\2 LV mass(C)s 115.1 grams LV mass(C)sI 56.0 grams/m\S\2 SV(Teich) 36.1 ml SI(Teich) 17.6 ml/m\S\2 SV(cubed) 41.0 ml SI(cubed) 19.9 ml/m\S\2 EDV(MOD-sp4) 119.0 ml ESV(MOD-sp4) 69.0 ml EF(MOD-sp4) 42.0 % EDV(MOD-sp2) 120.0 ml ESV(MOD-sp2) 67.0 ml EF(MOD-sp2) 44.2 % SV(MOD-sp4) 50.0 ml SI(MOD-sp4) 24.3 ml/m\S\2 SV(MOD-sp2) 53.0 ml SI(MOD-sp2) 25.8 ml/m\S\2
[2017-10-25] MEDS ORDERED: BRL90 PO (16:26)
[2017-10-25] MEDS ORDERED: ASPEC81 PO (16:26)
[2017-10-25] MEDS ORDERED: ATOR-22 PO (16:26)
[2017-10-25] MEDS ORDERED: TPRSR50 PO (16:26)
[2017-10-25] MEDS ORDERED: NTRSLP4 SL (16:26)
--- NOTE | 2017-10-25 16:31 | Discharge Instructions ---
Discharge Instructions Procedure Procedure Date: Oct 25, 2017. Reason for Visit: Nstemi. Discharge Discharge Date: Oct 25, 2017. Discharge Diagnosis: NonST elevation MO Successful LAD stent Problem List: Medical Problems: (1) NSTEMI (non-ST elevated myocardial infarction) Status: Acute Last Recorded Wt (Kilograms): 86.800 Anesthesia Post Anesthesia Instructions: If you have had General Anesthesia or IV Sedation: * Do not drive today. * Resume driving when surgeon permits. * Do not make important decisions or sign legal documents today. * Call surgeon for: 1. Temperature elevations greater than 101 degrees F. 2. Uncontrollable pain. 3. Excessive bleeding. 4. Persistent nausea and vomiting. 5. Medication intolerance (nausea, vomiting or rash). * For nausea and vomiting use only clear liquids such as: tea, soda, bouillon until nausea subsides, then gradually increase diet as tolerated. * If you have any concerns or questions, call your surgeon's office. If physician is unavailable and it is an emergency, call 911 or go to the nearest emergency room. Instructions Activity Recommendations: limitations as noted below Recommended Home Diet: low cholesterol Allergies: Coded Allergies: No Known Allergies (Verified , 10/24/17) Provider Instructions ACTIVITY RECOMMENDATIONS: Excess manipulation of the wrist should be avoided for the next 24-48 hours. * No lifting over 2 pounds (approximately a 1/2 gallon of milk) with the utilized arm for 24 hours. * No strenuous activity such as bowling or tennis for 3 days. * Keep the site of the procedure covered with a bandage for 24 hours. *You may shower the day after the procedure. Do not take a tub bath or submerge the puncture site in water for the next 3 days. *Do not operate any motorized equipment for 3 days. SPECIAL CARE INSTRUCTIONS: The site may be slightly bruised and sore following your procedure. Should any of the following occur, contact the Dr. who performed your procedure. 1. Redness/inflammation, swelling, chills, or fever, or colored drainage at procedure site within 3-7 days after your procedure. 2. Coldness, discoloration, ongoing numbness, severe pain, or swelling. Expect mild tingling of hand and tenderness at the puncture site for up to three days. If this persists beyond three days, or other symptoms develop, notify the Dr. who performed your procedure. BLEEDING: If the procedure site on your wrist begins to bleed, do not panic 1. Place 1 or 2 fingers firmly just slightly above the insertion site to stop the bleeding. You may be able to feel your pulse as you hold pressure. 2. Lift your finger after 5 minutes to see if the bleeding has stopped. 3. Once the bleeding has stopped, gently wipe the wrist area clean with a bandage. * If the bleeding from your wrist does not stop after 10 minutes, or if there is a large amount of bleeding or spurting, call 911 (do not drive yourself to the hospital). SKIN IRRITATION: * You may experience some redness and/or swelling in the area where radiation was administered. If any skin irritation occurs, please contact your family physician. FOLLOW UP VISIT: Keep any scheduled doctor appointments. Follow Up Follow-up with: [facility] 1-2 weeks Jackelyn Wise Recommendations: Call your doctor if: * Temperature above 101 degrees * Pain not relieved by pain medicine ordered * There is increased drainage or redness from any incision * You have any unanswered questions or concerns. Your Doctors Instructions noted above were prepared by provider Damien Reynolds. Patient Signature Section: Patient Instructions Signature Page Salomon Higinio Patient (or Guardian) Signature/Date: I have read and understand the instructions given to me by my caregivers. Caregiver/RN/Doctor Signature/Date: The above-named patient and/or guardian has received patient instructions on this date. + Original Patient Signature Page (only) stays with chart. Please make copy for patient.
[2017-10-25 16:48] VITALS: BP 131/73; PULSE 75; TEMP 36.5; O2SAT 97
--- NOTE | 2017-10-25 16:59 | DISCHARGE SUMMARY ---
DISCHARGE DIAGNOSES: 1. Acute non-ST segment elevation myocardial infarction. 2. Successful left anterior descending coronary artery drug-eluting stent insertion for single vessel occlusive disease. 3. Moderate diffuse coronary atherosclerosis. 4. Hypertension. 5. Hyperlipidemia. 6. Mild hyperglycemia. OPERATIONS AND PROCEDURES: Left heart coronary angiography by Dr. Reynolds on 10/24/2017. Coronary intervention by Dr. Mando Stone with the patient receiving a drug-eluting stent - 3 x 33 Xience to left anterior descending. COMPLICATIONS: None. MEDICATIONS ON DISCHARGE: Notable for initiation of Ticagrelor 90 mg twice per day, aspirin 81 mg daily, increase Toprol to 75 mg per day, nitroglycerin 0.4 mg sublingual p.r.n. Continue aspirin 81 mg per day, continue lisinopril 10 mg p.o. daily, and continue metformin 1000 mg twice per day, begun the day after discharge. SPECIAL INSTRUCTIONS: No driving, lifting or strenuous activity x3 days. Follow up with Dr. Reynolds/[facility] in 1-2 weeks' time. Report any new symptoms or complaints in the interim. Gradual increase activities prior return to work. Cardiac rehab consultation has been placed. BRIEF HISTORY: The patient is a 57-year-old male with history of hypertension, hyperlipidemia and familial history of coronary artery disease and prediabetes mellitus, who presented with a stuttering pattern of chest pain and discomfort beginning on 08/20/2017 with ultimate ER presentation on 10/24/2017 with pain to the jaw and right-sided neck. Enzymes are elevated, EKGs were consistent with LAD stenosis and is referred for inpatient management. HOSPITAL COURSE: The patient was evaluated and referred to the cardiac catheterization after anticoagulation with heparin on admission. Elevation of troponin was observed on initial presentation to 1.02. Cardiac catheterization demonstrated mild to moderate diffuse coronary atherosclerosis with heavy calcification in the left main and 10-20% distal taper. Left anterior descending representing culprit vessel had a 90% mid LAD stenosis, left circumflex had 30% proximal, 50% in the AV groove portion and a small sub branch narrowed by 80% at its origin. Echocardiogram on initial presentation demonstrated substantial LAD distribution area of severe hypokinesis with moderate left ventricular dysfunction. Repeat echocardiogram on day of discharge demonstrated already improvement in ejection fraction of 40-45% with residual hypokinesis of the LAD distribution, though segments slightly more contractible in just 24 hours' time. Laboratory studies demonstrated a peaked troponin of 5.08. EKG demonstrated persistent deep T-wave inversion across the anterolateral precordium with occasional ventricular ectopic beats. Possible management included titration upward of beta diana adding dual-antiplatelet therapy and intensification of lipid-lowering therapy to atorvastatin 80 mg per day. PLAN: Close clinical follow up. All results and findings discussed in detail with the patient.
[2017-10-26] MEDS ORDERED: METOPROLOL SUCC 50MG EXT REL TAB PO SCH (09:00)
== END 2017-10-25 17:12 | disposition home or self-care (01) | DRG 247 ==
LOC: C.EDB 05:25 → C.MSICU 06:50 → ENRESERV 07:20
PROVIDERS: ADMIT Hospitalist; ATTEND Hospitalist
PROC: 4A023N7 Measurement of Cardiac Sampling and Pressure, Left Heart, Percutaneous Approach (ICD-10-PCS; 2017-10-24)
PROC: B211YZZ Fluoroscopy of Multiple Coronary Arteries using Other Contrast (ICD-10-PCS; 2017-10-24)
PROC: 027034Z Dilation of Coronary Artery, One Artery with Drug-eluting Intraluminal Device, Percutaneous Approach (ICD-10-PCS; principal; 2017-10-24 11:11)
DX: I21.4 Non-ST elevation (NSTEMI) myocardial infarction (principal); I25.10 Atherosclerotic heart disease of native coronary artery without angina pectoris; I10 Essential (primary) hypertension; E11.9 Type 2 diabetes mellitus without complications; E78.5 Hyperlipidemia, unspecified; Z79.82 Long term (current) use of aspirin; Z79.84 Long term (current) use of oral hypoglycemic drugs; Z79.899 Other long term (current) drug therapy; Z82.49 Family history of ischemic heart disease and other diseases of the circulatory system